=== PATIENT | female | born 1975 | race African-American/Black ===

== ENCOUNTER 2016-12-13 15:52 | Emergency (ER) | payer OTHER, MEDICAID ==
[~2016-12-13] VITALS: Ht 170.2 cm; Wt 85.0 kg
[~2016-12-13 15:52] MED LIST: GLIP10TA10 PO; LISI1TAB13 PO; LITH300T19 PO; METF10002 PO; ZIPR40CA2 PO
[2016-12-13 16:04] VITALS: BP 158/96
== END 2016-12-13 16:50 | disposition left against medical advice (07) ==
LOC: ER 16:49
DX: R44.0 Auditory hallucinations (principal); Z53.21 Procedure and treatment not carried out due to patient leaving prior to being seen by health care provider
CPT/HCPCS: 82962

== ENCOUNTER 2024-09-10 09:14 | Emergency (ER) | payer MEDICAID, MEDICARE, OTHER ==
[~2024-09-10] VITALS: Ht 317.5 cm; Wt 82.0 kg
[~2024-09-10 09:14] MED LIST changes: -GLIP10TA10 PO; +GLIP10TA17 PO; -LITH300T19 PO; +LITHBID PO; +METF-416 PO; -METF10002 PO; -ZIPR40CA2 PO; +ZIPR40CA43 PO
[2024-09-10] MEDS: OLANZAPINE 10 MG/VIAL IM STA (09:19)
[2024-09-10] MEDS: LORAZEPAM 2MG/ML INJ IM STA (09:19)
[2024-09-10] MEDS: DIPHENHYDRAMINE 50MG/ML VIAL IM STA (09:19)
[2024-09-10 09:29] VITALS: O2SAT 94
[2024-09-10 11:27] LABS: CLARITY URINE CLOUDY (CLEAR); COLOR URINE YELLOW (YELLOW); GLUCOSE URINE NEGATIVE (NEGATIVE); KETONES URINE NEGATIVE (NEGATIVE); LEUKOCYTE ESTERASE URINE 3+ (NEGATIVE); NITRITE URINE NEGATIVE (NEGATIVE); OCCULT BLOOD URINE NEGATIVE (NEGATIVE); PROTEIN URINE 2+ (NEGATIVE); SPECIFIC GRAVITY URINE 1.006 (1.005-1.030); UROBILINOGEN URINE 0.2 E.U./dL (0.2-1.0)
[2024-09-10 11:48] LABS: BACTERIA URINE 2+; SQUAMOUS EPITHELIAL CELL URINE 2+ /lpf (RARE/1+); YEAST URINE NONE SEEN
[2024-09-10 11:49] LABS: *AMPHETAMINES SCREEN URINE NEGATIVE (NEGATIVE)
[2024-09-10 11:50] LABS: *BARBITURATES SCREEN URINE NEGATIVE (NEGATIVE); *BENZODIAZEPINES SCREEN URINE NEGATIVE (NEGATIVE); *COCAINE SCREEN URINE NEGATIVE (NEGATIVE); CANNABINOID URINE SCREEN NEGATIVE (NEGATIVE); ECSTASY MDMA SCREEN URINE NEGATIVE (NEGATIVE); METHADONE URINE SCREEN NEGATIVE (NEGATIVE); OPIATES URINE SCREEN NEGATIVE (NEGATIVE); PHENCYCLIDINE URINE SCREEN NEGATIVE (NEGATIVE)
[2024-09-10 12:43] LABS: BASOPHILS % 0.4 % (0.0-2.0); DIFFERENTIAL COMMENT 0; EOSINOPHILS % 0.1 % (0.0-5.0); HEMATOCRIT. 39.3 % (36.0-48.0); LYMPHOCYTES % 11.1 % (20.0-50.0); MEAN CORPUSCULAR HEMOGLOBIN 29.6 pg (28.0-32.0); MEAN CORPUSCULAR HGB CONC 32.9 g/dL (31.0-37.0); MEAN CORPUSCULAR VOLUME 89.9 fL (81.0-99.0); MONOCYTES % 10.8 % (2.0-8.0); NEUTROPHILS % 77.6 % (40.0-76.0); PLATELET 186 x1000/uL (130-400); RED BLOOD CELL COUNT 4.38 mill/uL (4.2-5.4); RED CELL DISTRIBUTION WIDTH 13.1 % (11.6-14.6); WHITE BLOOD COUNT 9.3 x1000/uL (4.5-11.0)
[2024-09-10 12:44] LABS: CHLORIDE 111 mEq/L (98-107); POTASSIUM 3.9 mEq/L (3.5-5.1); SODIUM 143 mEq/L (136-145)
[2024-09-10 12:45] LABS: CALCIUM 9.6 mg/dL (8.7-10.4); CARBON DIOXIDE 26 mEq/L (21-32)
[2024-09-10 12:50] LABS: GLUCOSE 77 mg/dL (70-105); UREA NITROGEN BLOOD 12 mg/dL (9-23)
[2024-09-10 13:13] LABS: HCG SCREEN NEGATIVE
[2024-09-10 13:16] LABS: ETHANOL BLOOD < 10 mg/dL (<10)
[2024-09-10] MEDS ORDERED: NITROFURANTOIN 100MG M/M CAPSULE PO SCH (21:00)
[2024-09-11] MEDS: NITROFURANTOIN 100MG M/M CAPSULE PO NR (01:34)
[2024-09-11] MEDS ORDERED: CEPH500C2 MT (08:42)
[2024-09-11] MEDS: DIPHENHYDRAMINE 50MG/ML VIAL IM ONE (16:30)
[2024-09-11] MEDS: HALOPERIDOL LACTATE 5MG/ML VIAL IM ONE (16:30)
[2024-09-11] MEDS: LORAZEPAM 2MG/ML INJ IM ONE (16:30)
[2024-09-11 18:25] VITALS: TEMP 36.66960
[2024-09-12 14:31] VITALS: BP 113/60; PULSE 51; RESP 18; O2SAT 99
== END 2024-09-12 16:00 ==
LOC: ER 09:14
DX: F20.9 Schizophrenia, unspecified (principal); N39.0 Urinary tract infection, site not specified; E11.9 Type 2 diabetes mellitus without complications; F41.9 Anxiety disorder, unspecified; I10 Essential (primary) hypertension; Z20.822 Contact with and (suspected) exposure to COVID-19
CPT/HCPCS: 80305; 80048; 81003; 80320; 84703; 85025; 36415; 96372 ×2; 99285; 87426; J3490; J1200 ×2; J2060 ×2; J1630; G0480